=== PATIENT | female | born 1970 | race Caucasian/White ===

== ENCOUNTER 2023-09-22 15:04 | Outpatient (CLI) | payer OTHER, MEDICAID, SELFPAY | END 2023-09-22 15:05 | disposition home or self-care (01) | LOC: NFLDREF 09-23 05:05 | PROVIDERS: PCP Physician Assistant Medical; Referring Provider Physician Assistant Medical; Visit Provider Physician Assistant Medical | DX: Z00.00 Encounter for general adult medical examination without abnormal findings (principal); I10 Essential (primary) hypertension; E66.01 Morbid (severe) obesity due to excess calories; Z13.6 Encounter for screening for cardiovascular disorders | CPT/HCPCS: 80053; 80061; 84443 ==

== ENCOUNTER 2024-05-11 07:47 | Outpatient (CLI) | payer OTHER, MEDICAID, SELFPAY ==
--- NOTE | 2024-05-11 08:15 | CRLHL7_ITS ---
For Patients: As a result of the Century Cures Act, medical imaging exams and procedure reports are released immediately into your electronic medical record. You may view this report before your referring provider. If you have questions, please contact your health care provider. BILATERAL SCREENING MAMMOGRAM WITH COMPUTER-AIDED DETECTION AND TOMOSYNTHESIS TECHNIQUE: CC and MLO views were obtained. These mammographic images have been obtained using full-field digital technique. These mammographic images were interpreted with the benefit of computer-aided detection. Breast Tomosynthesis was used in this interpretation. COMPARISON FILM: 05/01/2021, 03/06/2020, 10/03/2018. FINDINGS: There are scattered areas of fibroglandular density IMPRESSION: There is no radiographic evidence for malignancy. ASSESSMENT: BI-RADS Category 2: Benign RECOMMENDATION: Routine screening mammogram in 1 year. A lay language report of this examination will be provided to the patient. José Luis Fournier M.D. Diagnostic Radiologist [email or web address] [place]AC[place]/Dictated by: José Luis Fournier MD @ 05/11/2024 9:54:00 AM (Electronically Signed)
== END 2024-05-11 07:48 | disposition home or self-care (01) ==
LOC: MAMMO 07:48
PROVIDERS: PCP Physician Assistant Medical; Visit Provider Physician Assistant Medical
DX: Z12.31 Encounter for screening mammogram for malignant neoplasm of breast (principal)
CPT/HCPCS: 77063; 77067

== ENCOUNTER 2024-05-30 08:00 | Outpatient (CLI) | payer OTHER, MEDICAID, SELFPAY ==
[2024-05-30 15:28] LABS: Chlamydia DNA Amplified* NOT DETECTED (No Detected); GC DNA Amplified* NOT DETECTED (No Detected)
== END 2024-05-30 08:01 | disposition home or self-care (01) ==
PROVIDERS: PCP Physician Assistant Medical; Visit Provider Physician Assistant Medical
DX: Z00.00 Encounter for general adult medical examination without abnormal findings (principal); R53.83 Other fatigue; E66.01 Morbid (severe) obesity due to excess calories; I10 Essential (primary) hypertension; Z11.3 Encounter for screening for infections with a predominantly sexual mode of transmission; Z11.59 Encounter for screening for other viral diseases
CPT/HCPCS: 80053; 80061; 82306; 84443; 86703; 86803; 87491; 87591; 87624; 87625; 88141; 88142

== ENCOUNTER 2025-02-14 10:06 | Outpatient (CLI) | payer OTHER, SELFPAY | END 2025-02-14 10:07 | disposition home or self-care (01) | PROVIDERS: PCP Physician Assistant Medical; Visit Provider Physician Assistant Medical | DX: M79.604 Pain in right leg (principal); M79.605 Pain in left leg; I10 Essential (primary) hypertension; R20.2 Paresthesia of skin; E66.01 Morbid (severe) obesity due to excess calories; Z68.43 Body mass index [BMI] 50.0-59.9, adult; Z11.8 Encounter for screening for other infectious and parasitic diseases | CPT/HCPCS: 80053; 82306; 82550; 82607; 82746; 83735; 84425; 84443; 86140; 86618 ==

== ENCOUNTER 2025-04-16 07:08 | Outpatient (CLI) | payer OTHER, SELFPAY ==
--- NOTE | 2025-04-16 07:15 | CRLHL7_ITS ---
For Patients: As a result of the Century Cures Act, medical imaging exams and procedure reports are released immediately into your electronic medical record. You may view this report before your referring provider. If you have questions, please contact your health care provider. INDICATION: Low back pain. Radiculopathy. COMPARISON: 04/12/2024. Technique Sagittal T1, T2, and STIR sequences. Axial T1 and T2 weighted sequences. FINDINGS: Degenerative retrolisthesis of L1 on L2 and L2 on L3 measures approximately 4 mm. Grade 1 anterolisthesis of L4 on L5 measures approximately 5 mm. No fractures. No vertebral body loss of height. No ligamentous injury. No suspicious osseous lesions. Normal conus terminates at L1-2. T12-L1: No spinal canal or neural foraminal narrowing. L1-2: Grade 1 retrolisthesis. Disc degeneration and loss disc height. Diffuse disc bulge. No narrowing of the spinal canal. No neural foraminal narrowing. L2-3: Grade 1 retrolisthesis. Disc degeneration diffuse disc bulge eccentric to the left. No narrowing of spinal canal. Mild narrowing of bilateral foramina. L3-4: Posterior disc bulge. No narrowing of the spinal canal. No neural foraminal narrowing. L4-5: Grade 1 anterolisthesis. Unroofed posterior disc bulge. No narrowing of spinal canal. No neural foraminal narrowing. Mild facet arthropathy. L5-S1: Disc degeneration and diffuse disc bulge. No narrowing of spinal canal. No impingement of the traversing S1 nerve roots. No neural foraminal narrowing. Degenerative changes of the SI joints. IMPRESSION: 1. Degenerative retrolisthesis of L1 on L2 and O2 and L3. Grade 1 anterolisthesis of L4 on L5. 2. Lumbar spondylosis 3. At L2-3, mild narrowing of the bilateral neural foramina 4. No spinal canal or neural foraminal narrowing at the remaining levels Dictated by Marcelo Ventura MD @ 04/16/2025 12:38:20 PM (Electronically Signed)
== END 2025-04-16 07:09 | disposition home or self-care (01) ==
LOC: MRI 07:09
PROVIDERS: PCP Physician Assistant Medical; Visit Provider Family Medicine
DX: M54.16 Radiculopathy, lumbar region (principal); M47.896 Other spondylosis, lumbar region; M51.26 Other intervertebral disc displacement, lumbar region; R32 Unspecified urinary incontinence
CPT/HCPCS: 72148